=== PATIENT | female | born 1995 ===

== ENCOUNTER 2018-10-15 20:16 | Emergency (ER) | payer SELFPAY ==
[~2018-10-15] VITALS: Ht 165.1 cm; Wt 135.4 kg
[2018-10-15 20:33] VITALS: BP 152/91; Ht 165.1 cm; Wt 135.4 kg
== END 2018-10-15 21:27 | disposition home or self-care (01) ==
LOC: ED 20:16
DX: H66.91 Otitis media, unspecified, right ear (principal); H60.91 Unspecified otitis externa, right ear; Z88.0 Allergy status to penicillin